=== PATIENT | female | born 1960 | race Caucasian/White ===

== ENCOUNTER 2020-04-30 22:28 | Emergency (ER) | payer BC ==
[~2020-04-30] VITALS: Ht 167.6 cm; Wt 67.3 kg
[~2020-04-30 22:28] MED LIST: ALLERGY10 M1 PO; FLONASE ALLERG9.9 ML NAS; GABAPENTIN100 MG PO; MUCINEX 60600 MG/TA1 PO; MULTIPLE VITAMI1 TA1 PO; OS-CAL 500+D31 EACH PO; PLAQUENIL200 MG PO; PRILOSEC 20MG20 MG PO; SUDAFED PE PRES PO; SYNALAR TOP; VANOS 0.1% TOP
[2020-04-30] MEDS ORDERED: SUDAFED 30M30 MG/TAB PO (23:19)
[2020-04-30] MEDS ORDERED: TRIAMCINOLONE A15 G1 TOP (23:20)
[2020-04-30] MEDS ORDERED: PROTONIX20 M1 PO (23:22)
[2020-04-30] MEDS ORDERED: LEXAPRO5 MG PO (23:22)
[2020-04-30] MEDS ORDERED: GOOD NEIGHBOR200 M3 PO (23:24)
[2020-04-30] MEDS ORDERED: FISH OIL 1000MG1 CAP PO (23:25)
[2020-05-01] MEDS ORDERED: BACTRIM DS TAB1 EACH PO (01:11)
[2020-05-01 01:15] VITALS: BP 117/72
== END 2020-05-01 01:53 | disposition home or self-care (01) ==
LOC: ED 22:28
DX: S61.011A Laceration without foreign body of right thumb without damage to nail, initial encounter (principal); Z23 Encounter for immunization; G62.9 Polyneuropathy, unspecified; W25.XXXA Contact with sharp glass, initial encounter; Y92.009 Unspecified place in unspecified non-institutional (private) residence as the place of occurrence of the external cause
CPT/HCPCS: 90715